=== PATIENT | male | born 1995 | race Caucasian/White ===

== ENCOUNTER 2018-01-01 18:08 | Emergency (ER) | payer OTHER ==
[~2018-01-01] VITALS: Ht 180.3 cm; Wt 81.5 kg
[2018-01-01 18:13] VITALS: BP 149/91; PULSE 68; RESP 16; TEMP 98.4; O2SAT 97
[2018-01-01] MEDS ORDERED: SILV1CRE20 TOPICAL (19:00)
[2018-01-01] MEDS ORDERED: CEPH-460 PO (19:00)
[2018-01-01] MEDS ORDERED: SILVER SULFADIAZINE 1% CR 50 GM JAR TOPICAL ONE (19:00)
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
== END 2018-01-01 19:43 | disposition home or self-care (01) ==
LOC: PHEFT 18:08
DX: T23.272A Burn of second degree of left wrist, initial encounter (principal); T49.0X1A Poisoning by local antifungal, anti-infective and anti-inflammatory drugs, accidental (unintentional), initial encounter
CPT/HCPCS: 16020